=== PATIENT | male | born 1945 | race African-American/Black ===

== ENCOUNTER 2019-11-25 14:30 | Emergency (ER) | payer MEDICARE, OTHER ==
[2019-11-25] MEDS ORDERED: Acetaminophen 500 MG TAB ONE (15:02)
--- NOTE | 2019-11-25 15:58 | RAD ---
EXAM: RIGHT WRIST THREE VIEWS: History: Right wrist pain. Comparison: 12-13-07 FINDINGS: There is some bony demineralization. Dorsal soft tissue swelling at the wrist. IMPRESSION: No evidence for acute fracture or dislocation. Bone demineralization. Degenerative and osteoarthrosis . Soft tissue swelling at the dorsal aspect of the wrist. If patient's pain is related to recent trauma and patient has persistent worsening pain, consider mary rt-term follow up study in 5-7 days. POS: [facility]
== END 2019-11-25 15:35 | disposition home or self-care (01) ==
LOC: ERS 14:30
DX: M25.531 Pain in right wrist (principal); E11.9 Type 2 diabetes mellitus without complications; E78.5 Hyperlipidemia, unspecified; I10 Essential (primary) hypertension

== ENCOUNTER 2024-07-11 16:57 | Inpatient (IN) | payer MEDICARE, OTHER ==
[2024-07-11 19:14] LABS: #Basophils 0.03 10x3/uL (0.0-0.2); #Eosinophils Less than 0.03 10x3/uL (0.0-0.7); %Basophils 0.2 % (0.0-1.0); %Lymphocytes 7.1 % (21.0-51.0); %Monocytes 7.4 % (0.0-10.0); %Neutrophils 84.8 % (42.0-75.0); Hematocrit 45.7 % (42.0-52.0); Hemoglobin 14.5 g/dL (14.0-18.0); Mean Corpuscular HGB CONC 31.7 g/dL (32.0-36.0); Mean Corpuscular Hemoglobin 29.1 pg (27.0-31.0); Mean Corpuscular Volume 91.6 fL (78.0-98.0); Mean Platelet Volume 9.8 fL (7.4-10.4); Platelet Count 297 10x3/uL (130-400); RBC Distribution Width 12.2 % (11.5-14.5); Red Blood Cell (RBC) Count 4.99 mill/uL (4.70-6.10)
[2024-07-11 19:22] LABS: ALT (SGPT) 16 U/L (8-55); AST (SGOT) 33 U/L (5-34); Albumin 3.8 g/dL (3.4-4.8); Alkaline Phosphatase 96 U/L (40-110); Anion Gap 19 mmol/L (10-20); BUN (Urea Nitrogen) 13 mg/dL (8.4-25.7); Bilirubin, Total 1.7 mg/dL (0.2-1.2); Calc. Creatinine Clearance 0 mL/min (70-130); Calcium 9.9 mg/dL (7.8-10.44); Carbon Dioxide 21 mmol/L (23-31); Chloride 108 mmol/L (98-107); Estimated GFR 41; Glucose 167 mg/dL (83-110); Lipase 8 U/L (8-78); Magnesium 1.5 mg/dL (1.6-2.6); Potassium 4.6 mmol/L (3.5-5.1); Protein, Total 7.8 g/dL (5.8-8.1); Sodium 143 mmol/L (136-145)
[2024-07-11 19:28] LABS: Troponin I 0.088 ng/mL (< 0.028)
[2024-07-11 19:32] LABS: Bilirubin Negative (Negative); Blood, Urine Trace (Negative); CAUTI Indications for Culture Pelvic or flank pain; Clarity Turbid (Clear); Glucose, Urine (Dipstick) Normal (Negative); Ketone, Urine Trace mg/dL (Negative); Leukocyte 500 Leu/uL (Negative); Nitrite Negative (Negative); Protein, Urine (Dipstick) 50 mg/dL (Neg-Trace); RBC/HPF 0-3 HPF (0-3); Specific Gravity, Urine 1.007 (1.002-1.036); Squamous Epithelial 0-3 HPF (0-3); Urobilinogen Normal mg/dL (Less than 2); pH, Urine 5.5 (5.0-9.0)
[2024-07-11 19:46] LABS: Bacteria/HPF Rare-Few HPF (None Seen)
[2024-07-11] MEDS ORDERED: Sodium Chloride 0.9% 100 ML ONE (19:47)
[2024-07-11] MEDS ORDERED: cefTRIAXone (ROCEPHIN) 1 GM VIAL ONE (19:48)
[2024-07-11 19:50] LABS: Urine Culture Reflex Yes Yes
[2024-07-11] MEDS ORDERED: Aspirin Chewable 81 MG TAB ONE (20:07)
[2024-07-11] MEDS ORDERED: Ondansetron ODT 4 MG TAB PO PRN (20:25)
[2024-07-11] MEDS ORDERED: traMADol HCl 50 MG TAB PO PRN (20:25)
[2024-07-11] MEDS ORDERED: Acetaminophen 325 MG TAB PO PRN (20:25)
[2024-07-11] MEDS ORDERED: Ondansetron PF 4 MG/2 ML Vial IVP PRN (20:25)
[2024-07-11] MEDS ORDERED: Insulin Lispro 100 UNIT/ML 10 ML VIAL SC PRN ×2 (20:35)
[2024-07-11] MEDS ORDERED: Dextrose 5% in Water 1,000 ML IV PRN (20:35)
[2024-07-11] MEDS ORDERED: Dextrose 50% Abboject 50 ML SYRINGE SLOW IVP PRN (20:35)
[2024-07-11] MEDS ORDERED: Glucagon 1 MG/ML KIT IM PRN (20:35)
[2024-07-11 21:06] LABS: Lactic Acid 2.15 mmol/L (0.5-2.2)
[2024-07-11 22:51] VITALS: BMI 31.3
[2024-07-11] MEDS ORDERED: Famotidine 20 MG TAB ONE (22:57)
[2024-07-11] MEDS ORDERED: Magnesium 2 GM/50 ML BAG (IN WATER) ONE (22:57)
[2024-07-11] MEDS ORDERED: Heparin 5,000 UNITS/ML VIAL ONE (22:57)
[2024-07-11 23:08] LABS: Troponin I 0.124 ng/mL (< 0.028)
[2024-07-11] MEDS: Famotidine 20 MG TAB PO SCH (23:15)
[2024-07-11] MEDS: Heparin 5,000 UNITS/ML VIAL SC SCH (23:15)
[2024-07-11] MEDS: Magnesium 2 GM/50 ML(in water) 2 GM in Premix 1 BAG IVPB SCH (23:15)
[2024-07-11] MEDS: Famotidine/PF 20 mg/2ml Vial SLOW IVP SCH (23:15)
[2024-07-12 02:12] LABS: Troponin I 0.124 ng/mL (< 0.028)
[2024-07-12] MEDS ORDERED: Levothyroxine Sodium 125 MCG TAB ONE (05:31)
[2024-07-12 05:36] LABS: #Basophils 0.05 10x3/uL (0.0-0.2); %Basophils 0.4 % (0.0-1.0); %Eosinophils 0.6 % (0.0-10.0); %Lymphocytes 20.6 % (21.0-51.0); %Monocytes 8.7 % (0.0-10.0); %Neutrophils 69.2 % (42.0-75.0); Hematocrit 40.8 % (42.0-52.0); Mean Corpuscular HGB CONC 31.9 g/dL (32.0-36.0); Mean Corpuscular Volume 91.1 fL (78.0-98.0); Mean Platelet Volume 9.7 fL (7.4-10.4); Platelet Count 244 10x3/uL (130-400); RBC Distribution Width 12.1 % (11.5-14.5); Red Blood Cell (RBC) Count 4.48 mill/uL (4.70-6.10)
[2024-07-12 05:56] LABS: ALT (SGPT) 14 U/L (8-55); AST (SGOT) 31 U/L (5-34); Albumin 3.2 g/dL (3.4-4.8); Alkaline Phosphatase 77 U/L (40-110); Anion Gap 15 mmol/L (10-20); BUN (Urea Nitrogen) 16 mg/dL (8.4-25.7); Bilirubin, Total 1.1 mg/dL (0.2-1.2); Calc. Creatinine Clearance 50 mL/min (70-130); Calcium 9.3 mg/dL (7.8-10.44); Carbon Dioxide 25 mmol/L (23-31); Chloride 110 mmol/L (98-107); Estimated GFR 40; Globulin 3.6 g/dL (2.4-3.5); Glucose 98 mg/dL (83-110); Potassium 4.6 mmol/L (3.5-5.1); Protein, Total 6.8 g/dL (5.8-8.1); Sodium 145 mmol/L (136-145)
[2024-07-12] MEDS: Levothyroxine Sodium 125 MCG TAB PO SCH (05:58)
[2024-07-12] MEDS: Famotidine 20 MG TAB PO SCH (07:53)
[2024-07-12] MEDS: Famotidine/PF 20 mg/2ml Vial SLOW IVP SCH (07:54)
[2024-07-12] MEDS ORDERED: Amlodipine 5 MG TAB ONE (09:19)
[2024-07-12] MEDS ORDERED: Aspirin 81 mg Enteric Coated Tablet ONE ×2 (09:20→09:23)
[2024-07-12] MEDS ORDERED: Clopidogrel Bisulfate 75 MG TAB ONE (09:20)
[2024-07-12] MEDS ORDERED: Atorvastatin Calcium 40 MG TAB ONE (09:21)
[2024-07-12] MEDS ORDERED: Carvedilol 25 MG TAB ONE (09:22)
[2024-07-12] MEDS ORDERED: Loratadine 10 MG TAB ONE (09:22)
[2024-07-12] MEDS ORDERED: Heparin 5,000 UNITS/ML VIAL ONE (09:22)
[2024-07-12] MEDS: Amlodipine 10 MG TAB PO SCH (09:46)
[2024-07-12] MEDS: Aspirin 81 mg Enteric Coated Tablet PO SCH (09:46)
[2024-07-12] MEDS: Atorvastatin Calcium 40 MG TAB PO SCH (09:46)
[2024-07-12] MEDS: Clopidogrel Bisulfate 75 MG TAB PO SCH (09:46)
[2024-07-12] MEDS: Loratadine 10 MG TAB PO SCH (09:46)
[2024-07-12] MEDS: Carvedilol 25 MG TAB PO SCH (09:46)
[2024-07-12] MEDS: Spironolactone 25 MG TAB PO SCH (10:16)
[2024-07-12] MEDS: Brimonidine Tartrate 0.2% Ophth Soln 5 ml Bottle EA EYE SCH (13:04)
[2024-07-12] MEDS: Polyethylene Glycol OPTH DROP 15 ML BOT EA EYE SCH (13:04)
[2024-07-12] MEDS: Latanoprost 0.005% Ophth Soln 2.5 ml Bottle EA EYE SCH (13:04)
[2024-07-12] MEDS: cefTRIAXone\\ROCEPHIN 1 GM in Sodium Chloride 0.9% 100 ML IVPB SCH (18:22)
[2024-07-12] MEDS: SYSTANE 0.3-0.4% EYE DROPS (30 ML) EA EYE SCH ×2 (20:44→20:46)
[2024-07-12] MEDS: HumuLIN 70/30 100 Unit/ml 10 ml Vial SC SCH (20:46)
[2024-07-13 04:48] LABS: #Basophils 0.05 10x3/uL (0.0-0.2); %Basophils 0.4 % (0.0-1.0); %Lymphocytes 25.1 % (21.0-51.0); %Monocytes 12.2 % (0.0-10.0); %Neutrophils 59.8 % (42.0-75.0); Hematocrit 38.6 % (42.0-52.0); Hemoglobin 12.9 g/dL (14.0-18.0); Mean Corpuscular HGB CONC 33.4 g/dL (32.0-36.0); Mean Corpuscular Hemoglobin 29.3 pg (27.0-31.0); Mean Corpuscular Volume 87.5 fL (78.0-98.0); Mean Platelet Volume 9.7 fL (7.4-10.4); Platelet Count 190 10x3/uL (130-400); RBC Distribution Width 11.9 % (11.5-14.5); Red Blood Cell (RBC) Count 4.41 mill/uL (4.70-6.10)
[2024-07-13 08:36] LABS: Chloride 106 mmol/L (98-107); Potassium 4.5 mmol/L (3.5-5.1); Sodium 141 mmol/L (136-145)
[2024-07-13 08:37] LABS: Calcium 9.4 mg/dL (7.8-10.44); Glucose 151 mg/dL (83-110)
[2024-07-13 08:39] LABS: Anion Gap 16 mmol/L (10-20); Carbon Dioxide 24 mmol/L (23-31)
[2024-07-13 08:41] LABS: BUN (Urea Nitrogen) 22 mg/dL (8.4-25.7); Calc. Creatinine Clearance 50 mL/min (70-130); Estimated GFR 40
[2024-07-14 16:54] LABS: #Basophils 0.03 10x3/uL (0.0-0.2); %Basophils 0.4 % (0.0-1.0); %Eosinophils 3.4 % (0.0-10.0); %Lymphocytes 19.5 % (21.0-51.0); %Monocytes 9.7 % (0.0-10.0); %Neutrophils 66.3 % (42.0-75.0); Hematocrit 40.6 % (42.0-52.0); Mean Corpuscular Hemoglobin 29.5 pg (27.0-31.0); Mean Corpuscular Volume 92.3 fL (78.0-98.0); Mean Platelet Volume 9.9 fL (7.4-10.4); Platelet Count 248 10x3/uL (130-400)
[2024-07-14 17:23] LABS: Anion Gap 13 mmol/L (10-20); BUN (Urea Nitrogen) 23 mg/dL (8.4-25.7); Calc. Creatinine Clearance 54 mL/min (70-130); Carbon Dioxide 23 mmol/L (23-31); Chloride 110 mmol/L (98-107); Estimated GFR 44; Glucose 144 mg/dL (83-110); Potassium 4.8 mmol/L (3.5-5.1); Sodium 141 mmol/L (136-145)
[2024-07-15 06:49] LABS: #Basophils 0.05 10x3/uL (0.0-0.2); %Basophils 0.7 % (0.0-1.0); %Eosinophils 3.7 % (0.0-10.0); %Lymphocytes 26.2 % (21.0-51.0); %Monocytes 9.4 % (0.0-10.0); %Neutrophils 59.3 % (42.0-75.0); Hematocrit 39.4 % (42.0-52.0); Hemoglobin 12.6 g/dL (14.0-18.0); Mean Corpuscular Hemoglobin 29.2 pg (27.0-31.0); Mean Corpuscular Volume 91.2 fL (78.0-98.0); Platelet Count 252 10x3/uL (130-400); RBC Distribution Width 11.9 % (11.5-14.5); Red Blood Cell (RBC) Count 4.32 mill/uL (4.70-6.10)
[2024-07-15 07:14] LABS: Anion Gap 11 mmol/L (10-20); BUN (Urea Nitrogen) 21 mg/dL (8.4-25.7); Calc. Creatinine Clearance 61 mL/min (70-130); Calcium 9.5 mg/dL (7.8-10.44); Carbon Dioxide 26 mmol/L (23-31); Chloride 108 mmol/L (98-107); Estimated GFR 51; Glucose 117 mg/dL (83-110); Potassium 4.2 mmol/L (3.5-5.1); Sodium 141 mmol/L (136-145)
[2024-07-16 05:59] LABS: #Basophils 0.03 10x3/uL (0.0-0.2); %Basophils 0.3 % (0.0-1.0); %Eosinophils 2.3 % (0.0-10.0); %Lymphocytes 14.7 % (21.0-51.0); %Monocytes 13.1 % (0.0-10.0); Hematocrit 38.1 % (42.0-52.0); Hemoglobin 12.6 g/dL (14.0-18.0); Mean Corpuscular HGB CONC 33.1 g/dL (32.0-36.0); Mean Corpuscular Hemoglobin 29.1 pg (27.0-31.0); Mean Platelet Volume 10.6 fL (7.4-10.4); Platelet Count 262 10x3/uL (130-400); Red Blood Cell (RBC) Count 4.33 mill/uL (4.70-6.10)
[2024-07-16 06:09] LABS: Anion Gap 14 mmol/L (10-20); BUN (Urea Nitrogen) 20 mg/dL (8.4-25.7); Calc. Creatinine Clearance 62 mL/min (70-130); Calcium 9.5 mg/dL (7.8-10.44); Carbon Dioxide 25 mmol/L (23-31); Chloride 106 mmol/L (98-107); Estimated GFR 52; Glucose 155 mg/dL (83-110); Potassium 4.4 mmol/L (3.5-5.1); Sodium 141 mmol/L (136-145)
[2024-07-16 11:34] VITALS: TEMP 98.5
[2024-07-16] MEDS: cefTRIAXone\\ROCEPHIN 1 GM in Sodium Chloride 0.9% 100 ML IVPB SCH (13:53)
[2024-07-16 15:49] VITALS: BP 111/58
== END 2024-07-16 15:55 | DRG 689 ==
LOC: ERS 16:57 → ERHOLD 21:07 → 2NO 07-12 11:17 → OBSVTOIN 07-12 16:14 → SURG B 07-14 18:24
PROVIDERS: ADMIT Internal Medicine; ATTEND Internal Medicine
DX: N39.0 Urinary tract infection, site not specified (principal); G93.41 Metabolic encephalopathy; I21.A1 Myocardial infarction type 2; N17.9 Acute kidney failure, unspecified; E11.22 Type 2 diabetes mellitus with diabetic chronic kidney disease; I12.9 Hypertensive chronic kidney disease with stage 1 through stage 4 chronic kidney disease, or unspecified chronic kidney disease; N18.30 Chronic kidney disease, stage 3 unspecified; R53.81 Other malaise; K21.9 Gastro-esophageal reflux disease without esophagitis; N28.1 Cyst of kidney, acquired; E78.5 Hyperlipidemia, unspecified; Z86.73 Personal history of transient ischemic attack (TIA), and cerebral infarction without residual deficits; Z88.0 Allergy status to penicillin; Z90.49 Acquired absence of other specified parts of digestive tract; Z85.038 Personal history of other malignant neoplasm of large intestine; Z87.891 Personal history of nicotine dependence
CPT/HCPCS: 36415; 36416; 70450; 70551; 71045; 76770; 80048; 80053; 81001; 83605; 83690; 83735; 83880; 84145; 84484; 85025; 87040; 87086; 93005; 96372; G0378; J0696; J1644; J1815; J3475

== ENCOUNTER 2024-09-10 22:44 | Inpatient (IN) | payer MEDICARE, OTHER ==
[2024-09-10 23:31] LABS: #Basophils 0.04 10x3/uL (0.0-0.2); #Eosinophils Less than 0.03 10x3/uL (0.0-0.7); %Basophils 0.4 % (0.0-1.0); %Eosinophils 0.1 % (0.0-10.0); %Lymphocytes 10.4 % (21.0-51.0); %Neutrophils 81.8 % (42.0-75.0); Hematocrit 43.5 % (42.0-52.0); Hemoglobin 13.9 g/dL (14.0-18.0); Mean Corpuscular Hemoglobin 28.5 pg (27.0-31.0); Mean Corpuscular Volume 89.1 fL (78.0-98.0); Mean Platelet Volume 10.1 fL (7.4-10.4); Platelet Count 262 10x3/uL (130-400); RBC Distribution Width 12.4 % (11.5-14.5); Red Blood Cell (RBC) Count 4.88 mill/uL (4.70-6.10)
[2024-09-10] MEDS ORDERED: hydrALAZINE 20 MG/ML VIAL ONE (23:44)
[2024-09-10 23:46] LABS: ALT (SGPT) 9 U/L (8-55); AST (SGOT) 17 U/L (5-34); Acetaminophen Less than 10 mcg/mL (Less than 10); Albumin 3.5 g/dL (3.4-4.8); Alcohol Less than 10.0 mg/dL (Less than 10); Alkaline Phosphatase 88 U/L (40-110); Anion Gap 21 mmol/L (10-20); BUN (Urea Nitrogen) 12 mg/dL (8.4-25.7); Bilirubin, Total 1.4 mg/dL (0.2-1.2); Calc. Creatinine Clearance 0 mL/min (70-130); Calcium 9.6 mg/dL (7.8-10.44); Carbon Dioxide 23 mmol/L (23-31); Chloride 105 mmol/L (98-107); Estimated GFR 44; Globulin 3.9 g/dL (2.4-3.5); Glucose 169 mg/dL (83-110); Potassium 4.8 mmol/L (3.5-5.1); Protein, Total 7.4 g/dL (5.8-8.1); Salicylate Less than 8.0 mg/dL (Less than 8.0); Sodium 144 mmol/L (136-145)
[2024-09-10 23:52] LABS: Troponin I 0.024 ng/mL (< 0.028)
[2024-09-11 01:23] LABS: Bacteria/HPF None Seen HPF (None Seen); Bilirubin Negative (Negative); Blood, Urine Negative (Negative); CAUTI Indications for Culture Dysuria,urgency,freq; Clarity Clear (Clear); Glucose, Urine (Dipstick) Normal (Negative); Ketone, Urine 10 mg/dL (Negative); Leukocyte Negative Leu/uL (Negative); Nitrite Negative (Negative); Protein, Urine (Dipstick) 100 mg/dL (Neg-Trace); RBC/HPF 0-3 HPF (0-3); Specific Gravity, Urine 1.011 (1.002-1.036); Squamous Epithelial 0-3 HPF (0-3); Urobilinogen Normal mg/dL (Less than 2); WBC/HPF 0-3 HPF (0-3)
[2024-09-11 01:25] LABS: Urine Culture Reflex No No
[2024-09-11 01:30] LABS: Amphetamine Not Detected (NotDetected); Barbiturates Screen Not Detected (NotDetected); Benzodiazepine Screen Not Detected (NotDetected); Cocaine Metabolite Screen Not Detected (NotDetected); Methadone Not Detected (NotDetected); Methamphetamine Not Detected (NotDetected); Opiate Screen Not Detected (NotDetected); Oxycodone Screen Not Detected (NotDetected); Phencyclidine (PCP) Not Detected (NotDetected); THC/Cannabinoid Screen Not Detected (NotDetected); Tricyclic Screen Not Detected (NotDetected)
[2024-09-11] MEDS ORDERED: Labetalol HCl 100 MG/20 ML VIAL ONE (01:42)
[2024-09-11 02:14] LABS: Lactic Acid 2.55 mmol/L (0.5-2.2)
[2024-09-11] MEDS ORDERED: Ondansetron ODT 4 MG TAB PO PRN (02:56)
[2024-09-11] MEDS ORDERED: Acetaminophen 650 MG Suppository PR PRN (02:56)
[2024-09-11] MEDS ORDERED: hydrALAZINE 20 MG/ML VIAL SLOW IVP PRN ×2 (03:02→11:34)
[2024-09-11] MEDS ORDERED: Dextrose 5% in Water 1,000 ML IV PRN (03:08)
[2024-09-11] MEDS ORDERED: Glucagon 1 MG/ML KIT IM PRN (03:08)
[2024-09-11] MEDS ORDERED: Dextrose 50% Abboject 50 ML SYRINGE SLOW IVP PRN (03:08)
[2024-09-11] MEDS: Carvedilol 25 MG TAB PO SCH ×2 (04:06→08:43)
[2024-09-11 04:53] LABS: #Basophils 0.03 10x3/uL (0.0-0.2); #Eosinophils Less than 0.03 10x3/uL (0.0-0.7); %Basophils 0.2 % (0.0-1.0); %Lymphocytes 7.4 % (21.0-51.0); %Monocytes 7.4 % (0.0-10.0); %Neutrophils 84.8 % (42.0-75.0); Hematocrit 42.5 % (42.0-52.0); Hemoglobin 13.9 g/dL (14.0-18.0); Mean Corpuscular HGB CONC 32.7 g/dL (32.0-36.0); Mean Corpuscular Hemoglobin 28.3 pg (27.0-31.0); Mean Corpuscular Volume 86.6 fL (78.0-98.0); Mean Platelet Volume 10.1 fL (7.4-10.4); Platelet Count 238 10x3/uL (130-400); RBC Distribution Width 12.5 % (11.5-14.5); Red Blood Cell (RBC) Count 4.91 mill/uL (4.70-6.10)
[2024-09-11] MEDS: Sodium Chloride 0.9% 1,000 ML IV SCH (04:57)
[2024-09-11 05:10] LABS: Anion Gap 17 mmol/L (10-20); BUN (Urea Nitrogen) 12 mg/dL (8.4-25.7); Calc. Creatinine Clearance 0 mL/min (70-130); Calcium 9.1 mg/dL (7.8-10.44); Carbon Dioxide 20 mmol/L (23-31); Chloride 109 mmol/L (98-107); Estimated GFR 59; Glucose 145 mg/dL (83-110); Potassium 3.8 mmol/L (3.5-5.1); Sodium 142 mmol/L (136-145)
[2024-09-11 05:11] LABS: Magnesium 1.2 mg/dL (1.6-2.6)
[2024-09-11] MEDS: Levothyroxine Sodium 125 MCG TAB PO SCH (06:45)
[2024-09-11] MEDS: Insulin Lispro 100 UNIT/ML 10 ML VIAL SC PRN (06:46)
[2024-09-11] MEDS ORDERED: Electrolyte Replacement Protocol 1 EACH FS SCH (06:56)
[2024-09-11] MEDS: Enoxaparin 40 MG (0.4 mL) SYRINGE SC SCH (08:42)
[2024-09-11] MEDS: Magnesium Sulfate In Water 4 GM in Premix 1 BAG IVPB SCH (08:42)
[2024-09-11] MEDS: Losartan 25 MG TAB PO SCH (08:42)
[2024-09-11] MEDS: Thiamine 100 MG TAB PO SCH (08:43)
[2024-09-11] MEDS: Clopidogrel Bisulfate 75 MG TAB PO SCH (08:43)
[2024-09-11] MEDS: Amlodipine 10 MG TAB PO SCH (08:43)
[2024-09-11] MEDS: Cyanocobalamin (Vitamin B-12) 1,000 MCG TAB PO SCH (08:43)
[2024-09-11] MEDS: Aspirin 81 mg Enteric Coated Tablet PO SCH (08:43)
[2024-09-11] MEDS: Folic Acid 1 MG TAB PO SCH (08:43)
[2024-09-11] MEDS: Multivit, Therapeutic 1 TAB PO SCH (08:43)
[2024-09-11] MEDS: Spironolactone 25 MG TAB PO SCH (08:43)
[2024-09-11] MEDS: Atorvastatin Calcium 40 MG TAB PO SCH (08:43)
[2024-09-11] MEDS: Famotidine 20 MG TAB PO SCH (08:43)
[2024-09-11] MEDS: glipiZIDE 10 MG TAB PO SCH (08:43)
[2024-09-11] MEDS: Latanoprost 0.005% Ophth Soln 2.5 ml Bottle EA EYE SCH (08:44)
[2024-09-11] MEDS ORDERED: Hydrochlorothiazide 25 MG TAB PO SCH (09:00)
[2024-09-11] MEDS: HumuLIN 70/30 100 Unit/ml 10 ml Vial SC SCH (17:48)
[2024-09-12] MEDS: Haloperidol Lactate 5 MG/ML VIAL ONE (02:00)
[2024-09-12 05:51] LABS: Anion Gap 16 mmol/L (10-20); BUN (Urea Nitrogen) 10 mg/dL (8.4-25.7); Calc. Creatinine Clearance 73 mL/min (70-130); Calcium 9.2 mg/dL (7.8-10.44); Carbon Dioxide 23 mmol/L (23-31); Chloride 109 mmol/L (98-107); Estimated GFR 64; Glucose 75 mg/dL (83-110); Magnesium 1.9 mg/dL (1.6-2.6); Sodium 143 mmol/L (136-145)
[2024-09-12 08:07] LABS: Lactic Acid 1.28 mmol/L (0.5-2.2)
[2024-09-12] MEDS: Famotidine 20 MG TAB PO SCH (09:35)
[2024-09-12] MEDS: Spironolactone 25 MG TAB PO SCH (09:36)
[2024-09-12] MEDS: Insulin Lispro 100 UNIT/ML 10 ML VIAL SC PRN (22:42)
[2024-09-13] MEDS: Ziprasidone 20 MG VIAL IM SCH (08:04)
[2024-09-13] MEDS: Sterile Water 10 ML VIAL FS SCH (08:04)
[2024-09-14 06:05] LABS: Hemoglobin 13.6 g/dL (14.0-18.0); Mean Corpuscular HGB CONC 33.2 g/dL (32.0-36.0); Mean Corpuscular Volume 84.5 fL (78.0-98.0); Mean Platelet Volume 11.2 fL (7.4-10.4); Platelet Count 235 10x3/uL (130-400); RBC Distribution Width 12.2 % (11.5-14.5); Red Blood Cell (RBC) Count 4.85 mill/uL (4.70-6.10)
[2024-09-14 06:10] LABS: Anion Gap 17 mmol/L (10-20); BUN (Urea Nitrogen) 17 mg/dL (8.4-25.7); Calc. Creatinine Clearance 52 mL/min (70-130); Calcium 9.2 mg/dL (7.8-10.44); Carbon Dioxide 20 mmol/L (23-31); Chloride 106 mmol/L (98-107); Estimated GFR 43; Glucose 86 mg/dL (83-110); Potassium 3.8 mmol/L (3.5-5.1); Sodium 139 mmol/L (136-145)
[2024-09-15 07:24] LABS: Anion Gap 16 mmol/L (10-20); BUN (Urea Nitrogen) 31 mg/dL (8.4-25.7); Calc. Creatinine Clearance 36 mL/min (70-130); Calcium 8.7 mg/dL (7.8-10.44); Carbon Dioxide 19 mmol/L (23-31); Chloride 106 mmol/L (98-107); Estimated GFR 28; Glucose 144 mg/dL (83-110); Potassium 4.1 mmol/L (3.5-5.1); Sodium 137 mmol/L (136-145)
[2024-09-15] MEDS: Lactated Ringer's 1,000 ML IV SCH (10:08)
[2024-09-16 08:34] LABS: Anion Gap 16 mmol/L (10-20); BUN (Urea Nitrogen) 37 mg/dL (8.4-25.7); Calc. Creatinine Clearance 43 mL/min (70-130); Calcium 8.5 mg/dL (7.8-10.44); Carbon Dioxide 21 mmol/L (23-31); Chloride 106 mmol/L (98-107); Estimated GFR 34; Glucose 93 mg/dL (83-110); Potassium 3.7 mmol/L (3.5-5.1); Sodium 139 mmol/L (136-145)
[2024-09-16] MEDS: Brimonidine Tartrate 0.2% Ophth Soln 5 ml Bottle EA EYE SCH (09:46)
[2024-09-16] MEDS: Insulin Glargine 30 UNITS/0.3 ML VIAL SC SCH (20:35)
[2024-09-17 06:14] LABS: Anion Gap 14 mmol/L (10-20); BUN (Urea Nitrogen) 38 mg/dL (8.4-25.7); Calc. Creatinine Clearance 53 mL/min (70-130); Calcium 9.1 mg/dL (7.8-10.44); Carbon Dioxide 23 mmol/L (23-31); Chloride 107 mmol/L (98-107); Estimated GFR 44; Glucose 115 mg/dL (83-110); Potassium 3.8 mmol/L (3.5-5.1); Sodium 140 mmol/L (136-145)
[2024-09-17] MEDS: Famotidine 20 MG TAB PO SCH (07:59)
[2024-09-18 06:11] LABS: Anion Gap 13 mmol/L (10-20); BUN (Urea Nitrogen) 39 mg/dL (8.4-25.7); Calc. Creatinine Clearance 60 mL/min (70-130); Calcium 9.1 mg/dL (7.8-10.44); Carbon Dioxide 23 mmol/L (23-31); Chloride 110 mmol/L (98-107); Estimated GFR 51; Glucose 179 mg/dL (83-110); Potassium 4.1 mmol/L (3.5-5.1); Sodium 142 mmol/L (136-145)
[2024-09-18] MEDS: Acetaminophen 325 MG TAB PO PRN (20:07)
[2024-09-19 07:30] LABS: Anion Gap 13 mmol/L (10-20); BUN (Urea Nitrogen) 33 mg/dL (8.4-25.7); Calc. Creatinine Clearance 74 mL/min (70-130); Calcium 9.1 mg/dL (7.8-10.44); Carbon Dioxide 22 mmol/L (23-31); Chloride 112 mmol/L (98-107); Estimated GFR 66; Glucose 128 mg/dL (83-110); Potassium 4.1 mmol/L (3.5-5.1); Sodium 143 mmol/L (136-145)
[2024-09-19] MEDS: Benzonatate 100 MG CAP PO PRN (15:14)
[2024-09-19] MEDS: metFORMIN 500 MG TAB PO SCH (15:14)
[2024-09-19 16:18] VITALS: BMI 29.7
[2024-09-20 08:48] LABS: Anion Gap 12 mmol/L (10-20); BUN (Urea Nitrogen) 23 mg/dL (8.4-25.7); Calc. Creatinine Clearance 78 mL/min (70-130); Calcium 9.4 mg/dL (7.8-10.44); Carbon Dioxide 23 mmol/L (23-31); Chloride 111 mmol/L (98-107); Estimated GFR 70; Glucose 121 mg/dL (83-110); Potassium 4.2 mmol/L (3.5-5.1); Sodium 142 mmol/L (136-145)
[2024-09-20 12:12] VITALS: BP 136/69; TEMP 98.1
== END 2024-09-20 12:07 | DRG 64 ==
LOC: ERS 22:44 → 2NO 09-11 02:56 → OBSVTOIN 09-11 13:07 → T4-A 09-15 14:20
PROVIDERS: ADMIT Internal Medicine; ATTEND Internal Medicine
DX: I63.9 Cerebral infarction, unspecified (principal); G93.41 Metabolic encephalopathy; E87.20 Acidosis, unspecified; N17.9 Acute kidney failure, unspecified; N18.32 Chronic kidney disease, stage 3b; E11.22 Type 2 diabetes mellitus with diabetic chronic kidney disease; E78.5 Hyperlipidemia, unspecified; I12.9 Hypertensive chronic kidney disease with stage 1 through stage 4 chronic kidney disease, or unspecified chronic kidney disease; E11.649 Type 2 diabetes mellitus with hypoglycemia without coma; K21.9 Gastro-esophageal reflux disease without esophagitis; E03.9 Hypothyroidism, unspecified; I16.0 Hypertensive urgency; Z85.038 Personal history of other malignant neoplasm of large intestine; Z88.0 Allergy status to penicillin; Z87.891 Personal history of nicotine dependence
CPT/HCPCS: 36415; 36416; 51701; 70450; 71045; 80048; 80053; 80306; 80307; 81001; 83605; 83735; 84484; 85025; 85027; 93005; 93306; 93880; 96361; 96374; 96375; G0378; J0360; J1650; J1815; J3475; J7030; J7120

== ENCOUNTER 2024-10-10 20:13 | Observation (INO) | payer MEDICARE, OTHER ==
[~2024-10-10 20:13] MED LIST: Iopamidol-370 76% 500 ML MDV (1 ML CHARGE) ONE
[2024-10-10 22:01] LABS: #Basophils 0.04 10x3/uL (0.0-0.2); %Basophils 0.4 % (0.0-1.0); %Eosinophils 1.1 % (0.0-10.0); %Lymphocytes 16.8 % (21.0-51.0); %Monocytes 8.1 % (0.0-10.0); %Neutrophils 73.3 % (42.0-75.0); Hematocrit 36.6 % (42.0-52.0); Hemoglobin 12.3 g/dL (14.0-18.0); Mean Corpuscular HGB CONC 33.6 g/dL (32.0-36.0); Mean Corpuscular Hemoglobin 28.3 pg (27.0-31.0); Mean Corpuscular Volume 84.3 fL (78.0-98.0); Mean Platelet Volume 9.5 fL (7.4-10.4); Platelet Count 249 10x3/uL (130-400); RBC Distribution Width 12.7 % (11.5-14.5); Red Blood Cell (RBC) Count 4.34 mill/uL (4.70-6.10)
[2024-10-10 22:04] LABS: Bacteria/HPF None Seen HPF (None Seen); Bilirubin Negative (Negative); Blood, Urine Negative (Negative); CAUTI Indications for Culture Alt mental st,lethar; Clarity Clear (Clear); Glucose, Urine (Dipstick) 30 mg/dL (Negative); Ketone, Urine Negative (Negative); Leukocyte Negative Leu/uL (Negative); Nitrite Negative (Negative); Protein, Urine (Dipstick) 30 mg/dL (Neg-Trace); RBC/HPF 0-3 HPF (0-3); Specific Gravity, Urine 1.012 (1.002-1.036); Squamous Epithelial 0-3 HPF (0-3); Urobilinogen Normal mg/dL (Less than 2); WBC/HPF 0-3 HPF (0-3); pH, Urine 5.5 (5.0-9.0)
[2024-10-10 22:06] LABS: Urine Culture Reflex No No
[2024-10-10 22:12] LABS: Amphetamine Not Detected (NotDetected); Barbiturates Screen Not Detected (NotDetected); Benzodiazepine Screen Not Detected (NotDetected); Cocaine Metabolite Screen Not Detected (NotDetected); Methadone Not Detected (NotDetected); Methamphetamine Not Detected (NotDetected); Opiate Screen Not Detected (NotDetected); Oxycodone Screen Not Detected (NotDetected); Phencyclidine (PCP) Not Detected (NotDetected); THC/Cannabinoid Screen Not Detected (NotDetected); Tricyclic Screen Not Detected (NotDetected)
[2024-10-10 22:16] LABS: Acetaminophen Less than 10 mcg/mL (Less than 10); Alcohol Less than 10.0 mg/dL (Less than 10); Salicylate Less than 8.0 mg/dL (Less than 8.0)
[2024-10-10 22:17] LABS: ALT (SGPT) 14 U/L (Less than 45); AST (SGOT) 18 U/L (11-34); Albumin 3.2 g/dL (3.1-4.5); Alkaline Phosphatase 81 U/L (40-110); Anion Gap 14 mmol/L (10-20); BUN (Urea Nitrogen) 18 mg/dL (8.4-25.7); Bilirubin, Total 0.9 mg/dL (0.3-1.2); Calc. Creatinine Clearance 0 mL/min (70-130); Calcium 8.8 mg/dL (7.8-10.44); Carbon Dioxide 25 mmol/L (23-31); Chloride 105 mmol/L (98-107); Estimated GFR 50; Globulin 4.1 g/dL (2.4-3.5); Glucose 239 mg/dL (83-110); Potassium 4.5 mmol/L (3.5-5.1); Protein, Total 7.3 g/dL (5.8-8.1); Sodium 139 mmol/L (136-145)
[2024-10-10 22:20] LABS: Troponin I Less than 0.010 ng/mL (< 0.028)
[2024-10-11] MEDS ORDERED: Acetaminophen 500 MG TAB ONE (00:13)
[2024-10-11 05:17] VITALS: BMI 32.8
[2024-10-11] MEDS ORDERED: Acetaminophen 325 MG TAB PO PRN ×2 (09:24→09:27)
[2024-10-11] MEDS ORDERED: metFORMIN 500 MG TAB PO SCH ×2 (09:26→17:00)
[2024-10-11] MEDS ORDERED: Insulin Lispro 100 UNIT/ML 10 ML VIAL SC PRN ×2 (09:27)
[2024-10-11] MEDS ORDERED: Senokot S 8.6-50 MG TAB PO PRN (09:27)
[2024-10-11] MEDS ORDERED: Acetaminophen 650 MG Suppository PR PRN (09:27)
[2024-10-11] MEDS ORDERED: Ondansetron PF 4 MG/2 ML Vial IVP PRN (09:27)
[2024-10-11] MEDS ORDERED: Dextrose 50% Abboject 50 ML SYRINGE SLOW IVP PRN (09:27)
[2024-10-11] MEDS ORDERED: Dextrose 5% in Water 1,000 ML IV PRN (09:27)
[2024-10-11] MEDS ORDERED: Glucagon 1 MG/ML KIT IM PRN (09:27)
[2024-10-11] MEDS ORDERED: Ondansetron ODT 4 MG TAB PO PRN (09:27)
[2024-10-11] MEDS: Amlodipine 10 MG TAB PO SCH (10:21)
[2024-10-11] MEDS: Aspirin 81 mg Enteric Coated Tablet PO SCH (10:21)
[2024-10-11] MEDS: Clopidogrel Bisulfate 75 MG TAB PO SCH (10:22)
[2024-10-11 12:23] VITALS: BP 169/76; TEMP 98
[2024-10-11] MEDS: Polyethylene Glycol OPTH DROP 15 ML BOT EA EYE SCH (14:58)
[2024-10-11] MEDS ORDERED: Latanoprost 0.005% Ophth Soln 2.5 ml Bottle EA EYE SCH (21:00)
[2024-10-11] MEDS ORDERED: Carvedilol 25 MG TAB PO SCH (21:00)
[2024-10-11] MEDS ORDERED: Brimonidine Tartrate 0.2% Ophth Soln 5 ml Bottle EA EYE SCH (21:00)
[2024-10-12] MEDS ORDERED: Levothyroxine Sodium 125 MCG TAB PO SCH (06:00)
[2024-10-12] MEDS ORDERED: Spironolactone 25 MG TAB PO SCH (08:00)
[2024-10-12] MEDS ORDERED: Thiamine 100 MG TAB PO SCH (09:00)
[2024-10-12] MEDS ORDERED: Hydrochlorothiazide 25 MG TAB PO SCH (09:00)
[2024-10-12] MEDS ORDERED: Loratadine 10 MG TAB PO SCH (09:00)
[2024-10-12] MEDS ORDERED: Atorvastatin Calcium 40 MG TAB PO SCH (09:00)
[2024-10-12] MEDS ORDERED: Losartan 25 MG TAB PO SCH (09:00)
[2024-10-18] MEDS ORDERED: metFORMIN 500 MG TAB PO SCH (17:00)
== END 2024-10-11 15:18 | disposition short-term general hospital (02) ==
LOC: ERS 20:13 → T4-A 10-11 02:52
PROVIDERS: ADMIT Student in an Organized Health Care Education/Training Program; ATTEND Student in an Organized Health Care Education/Training Program
DX: G93.41 Metabolic encephalopathy (principal); R41.82 Altered mental status, unspecified; E78.5 Hyperlipidemia, unspecified; K21.9 Gastro-esophageal reflux disease without esophagitis; I12.9 Hypertensive chronic kidney disease with stage 1 through stage 4 chronic kidney disease, or unspecified chronic kidney disease; N18.32 Chronic kidney disease, stage 3b; E11.22 Type 2 diabetes mellitus with diabetic chronic kidney disease; E03.9 Hypothyroidism, unspecified; Z79.890 Hormone replacement therapy; Z88.0 Allergy status to penicillin; Z98.890 Other specified postprocedural states; Z86.73 Personal history of transient ischemic attack (TIA), and cerebral infarction without residual deficits; Z79.84 Long term (current) use of oral hypoglycemic drugs; Z79.899 Other long term (current) drug therapy
CPT/HCPCS: 70496; 70498; 80306; 80307 ×2; 81001; 84484; 93005; 99285; G0378; Q9967; 80053; 84443; 85025